=== PATIENT | male | born 1970 | race Caucasian/White ===

== ENCOUNTER 2020-10-03 22:11 | Emergency (ER) | payer MEDICAID, OTHER ==
[~2020-10-03] VITALS: Ht 177.8 cm; Wt 77.1 kg
[2020-10-03 22:11] VITALS: BP_SYST 131
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
--- NOTE | 2020-10-03 22:33 | NUR ---
ER Dr. Strong at bedside examining patient.
[2020-10-03] MEDS ORDERED: BACITRACIN 1 GM OINT TP ONE (22:45)
[2020-10-03] MEDS ORDERED: DIPH-TET-PERTUS Vaccine 0.5 ML VIAL (ADACEL) I.M. ONE (22:45)
--- NOTE | 2020-10-03 23:06 | NUR ---
Patient D/C to [facility] with law enforement officers.
[2020-10-03 23:09] VITALS: BP_SYST 131
== END 2020-10-03 23:09 | disposition home or self-care (01) ==
LOC: SED 22:11
DX: S50.12XA Contusion of left forearm, initial encounter (principal); S70.12XA Contusion of left thigh, initial encounter; S80.12XA Contusion of left lower leg, initial encounter; V29.49XA Motorcycle driver injured in collision with other motor vehicles in traffic accident, initial encounter; Y93.89 Activity, other specified; Y92.89 Other specified places as the place of occurrence of the external cause; Y99.8 Other external cause status
CPT/HCPCS: 99283